=== PATIENT | female | born 1965 | race Caucasian/White ===

== ENCOUNTER 2019-09-05 09:58 | Outpatient (CLI) | payer BC, SELFPAY ==
--- NOTE | ~2019-09-05 | MM_ITS ---
EXAMINATION: MM screening [facility] BI w [facility] HISTORY: Screening mammogram TECHNIQUE: Craniocaudal and mediolateral oblique 3-D tomosynthesis images were obtained and synthetic 2-D images were generated. CAD analysis was submitted and interpreted. COMPARISON: 12/24/2018, 08/12/2017, 08/13/2016 bilateral digital screening mammogram examinations BREAST PARENCHYMAL COMPOSITION: There are scattered areas of fibroglandular density. FINDINGS: There is no evidence of suspicious mass, calcification, or architectural distortion to sugg est malignancy in either breast. There has been no suspicious interval change. IMPRESSION: 1. No mammographic evidence of malignancy. 2. Recommend routine screening mammography in one year. BI-RADS Category 1: Negative Reviewed, dictated and finalized at location A.
== END 2019-09-05 09:59 | disposition home or self-care (01) ==
LOC: ANHIMG 10:02
PROVIDERS: PCP Internal Medicine; Visit Provider Student in an Organized Health Care Education/Training Program
DX: Z12.31 Encounter for screening mammogram for malignant neoplasm of breast (principal)
CPT/HCPCS: 77063; 77067

== ENCOUNTER 2020-09-25 08:15 | Outpatient (CLI) | payer BC, SELFPAY ==
--- NOTE | ~2020-09-25 | MM_ITS ---
EXAMINATION: MM screening [facility] BI w sommer HISTORY: Screening TECHNIQUE: Craniocaudal and mediolateral oblique 3-D tomosynthesis images were obtained and synthetic 2-D images were generated. CAD analysis was submitted and interpreted. COMPARISON: Comparison to multiple prior studies sequentially, with oldest reviewed study dated 12/2014. BREAST PARENCHYMAL COMPOSITION: There are scattered areas of fibroglandular density. FINDINGS: There is no evidence of suspicious mass, calcification, or architectural distortion to sugg est malignancy in either breast. There has been no suspicious interval change. IMPRESSION: 1. No mammographic evidence of malignancy. 2. Recommend routine screening mammography in one year. BI-RADS Category 1: Negative Reviewed, dictated and finalized at location A.
== END 2020-09-25 08:16 | disposition home or self-care (01) ==
LOC: ANHIMG 08:22
PROVIDERS: PCP Internal Medicine; Visit Provider Student in an Organized Health Care Education/Training Program
DX: Z12.31 Encounter for screening mammogram for malignant neoplasm of breast (principal)
CPT/HCPCS: 77063; 77067

== ENCOUNTER 2021-10-28 12:44 | Outpatient (CLI) | payer BC, SELFPAY ==
--- NOTE | ~2021-10-28 | MM_ITS ---
EXAMINATION: MM screening [facility] BI w sommer HISTORY: Screening TECHNIQUE: Craniocaudal and mediolateral oblique 3-D tomosynthesis images were obtained and synthetic 2-D images were generated. CAD analysis was submitted and interpreted. COMPARISON: Comparison to multiple prior studies sequentially, with oldest reviewed study dated 07/23. BREAST PARENCHYMAL COMPOSITION: There are scattered areas of fibroglandular density. FINDINGS: There is no evidence of suspicious mass, calcification, or architectural distortion to sugg est malignancy in either breast. There has been no suspicious interval change. IMPRESSION: 1. No mammographic evidence of malignancy. 2. Recommend routine screening mammography in one year. BI-RADS Category 1: Negative Reviewed, dictated and finalized at location A.
== END 2021-10-28 12:45 | disposition home or self-care (01) ==
LOC: ANHIMG 12:47
PROVIDERS: PCP Internal Medicine; Visit Provider Student in an Organized Health Care Education/Training Program
DX: Z12.31 Encounter for screening mammogram for malignant neoplasm of breast (principal)
CPT/HCPCS: 77063; 77067

== ENCOUNTER 2023-02-02 10:00 | Outpatient (CLI) | payer BC, SELFPAY ==
--- NOTE | ~2023-02-02 | MM_ITS ---
EXAMINATION: MM screening [facility] BI w [facility] HISTORY: Screening mammogram TECHNIQUE: Craniocaudal and mediolateral oblique 3-D tomosynthesis images were obtained and synthetic 2-D images were generated. CAD analysis was submitted and interpreted. COMPARISON: 10/28/2021, 10/12/2020, 09/05/2019 bilateral screening mammogram examinations BREAST PARENCHYMAL COMPOSITION: There are scattered areas of fibroglandular density. FINDINGS: There is stable mild fibroglandular asymmetry. Minimal benign calcification noted on the ri ght. There is no evidence of suspicious mass, calcification, or architectural distortion to suggest m alignancy in either breast. There has been no suspicious interval change. IMPRESSION: 1. No mammographic evidence of malignancy. 2. Recommend routine screening mammography in one year. BI-RADS Category 2: Benign finding(s). Reviewed, dictated and finalized at location A.
== END 2023-02-02 10:01 | disposition home or self-care (01) ==
LOC: ANHIMG 10:03
PROVIDERS: PCP Internal Medicine; Visit Provider Obstetrics & Gynecology
DX: Z12.31 Encounter for screening mammogram for malignant neoplasm of breast (principal)
CPT/HCPCS: 77063; 77067

== ENCOUNTER 2024-07-23 15:04 | Outpatient (CLI) | payer OTHER, SELFPAY ==
--- NOTE | ~2024-07-23 | MM_ITS ---
EXAMINATION: MM screening [facility] BI w sommer HISTORY: Screening mammogram TECHNIQUE: Craniocaudal and mediolateral oblique 3-D tomosynthesis images were obtained and synthetic 2-D images were generated. CAD analysis was submitted and interpreted. COMPARISON: 02/02/2023, 10/28/2021, 09/25/2020, 09/05/2019 BREAST PARENCHYMAL COMPOSITION:Not Dense. There are scattered areas of fibroglandular density. FINDINGS: No suspicious mass, calcification, or architectural distortion are identified in either loree ast to suggest malignancy. There has been no suspicious interval change. IMPRESSION: No mammographic evidence of malignancy. Recommend routine screening mammography in one year. BI-RADS Category 1: Negative Reviewed, dictated and finalized at location .
--- OUTSIDE RECORDS SUMMARY | 2024-07-23 16:40 | XMS_ITS | Continuity of Care Document ---
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 [address] [facility] [address], [address], [place]. tel:[phone] Referring Provider: Marilyn Kelly OD, [address] [facility], [place], [address]. tel:[phone] Family History Family Member Type Diagnosis Age At Onset No Information Payers Payer name Insurance type Covered libertarian ID Authoriza tion(s) No Information Social History Type Description Quantity Date Captured Comments Sex Female Smoking Status No Information Chief Complaint And Reason For Visit No Information Reason For Referral Reason For Referral No Information History Of Present Illness Encounter Date Complaint History Of Prese nt Illness No Information Functional Status Date Functional Assessmen t No Information Instructions Date Instruction Additional Infor mation No Information Assessments Type Assessment Date No Information Patient Care Teams Name Effective Dates (start - stop) Status Members No Information
--- OUTSIDE RECORDS SUMMARY | 2024-07-23 16:40 | XMS_ITS | Data Portability ---
Author Organization [facility] [employer], Main Office Address [address] [place] [address] Assessment No assessment recorded. Plan of Treatment Reminders Order Date Submit Date Provider Last Modified By Organization Details Last Modified Time Details Appointments Establish ed Patient 15 2024 09:00A M Edward Yanes MD Not available Not available Not available Lab lipid panel, serum 2023 024 [facility] (Lab), [address] [place], [address], 03/26/2024 21:13:06 vitamin D, 25-hydrox y, total, serum [address] (Lab), [address] [place], [address], 04/27/2023 09:47:39 CMP, serum or plasma [address] (Lab), [address] [place], [address], 04/27/2023 09:47:38 lipid panel, serum [address] (Lab), [address] [place], [address], 04/27/2023 09:47:39 Referral None recorded. Procedures None recorded. Surgeries None recorded. Imaging MAMMO, screening , bilateral - Please call patient to schedule. [address] (Imaging), [address], [place], [address], 06/25/2024 17:13:42 Medication Orders omeprazol e 40 mg capsule,d elayed release 2023 024 [facility], [address] [place] [address], [address], 12/15/2023 11:06:01 rosuvasta tin 10 mg tablet 2023 024 [facility], [address] [place] [address], [id number], 12/15/2023 11:06:00 omeprazol e 40 mg capsule,d elayed release [email or web address] [facility], [address] [place] [address], [address], 08/10/2023 17:01:56 rosuvasta tin 10 mg tablet 2023 024 [facility] [address], [address] [place] [address], [id number], 08/10/2023 12:56:03 Patient TargetsNo targets recorded. Patient Instructions Encounter Date Encounter Id Patient Instructions Last Modified By Organization Details Last Modified Time 08/10/2023 [id number] [facility] e 08/10/2023 12:55:57 INFLUENZA VACCIN E Recommended today, but patient declined TD/TDAP Recommended today, patient declined Ordered Patient will get at local pharmacy/health department PNEUMONIA VACCINE Ordered Recommend ed today, patient declined Patient will get at local pharmacy/health department Recomm ended at age 66 SHINGLES Ordered Recommend ed today, patient declined Patient will get at local pharmacy/health department MAMMOGRAM: Last Mammogram __ No screening necessary patient is up to date DEXA SCAN CERVICAL SCREENING/PELVIC EXAMINATION Recommended today, but patient declined Ordered No screening necessary patient is up to date COLORECTAL SCREENING: Last Colonoscopy DEPRESSION SCREENING Negative BMI Overweight Approp riate NUTRITION Continue healthy eating & exercise PHYSICAL ACTIVITY Need more exercise/physical activity VISION ALCOHOL USE No alcohol use Occasional/So cial Use TOBACCO USE former smoker current tobacco use LUNG CANCER SCREENING SEXUALLY ACTIVE HEPATITIS C SCREENING Not indicated GLUCOSE SCREENING LIPID SCREENING [id number] Not available 08/10/2023 12:31:16 Reason for Referral None Reported. Results Created Date Observation Date Name Description Value Unit Range Abnormal Flag Note LastModifiedBy Organization Detail LastModifiedTime 06/27/19 24 06/27/2023 COMPR EHENS MALIKA METAB OLIC PANEL sodium 140 mmol/ L 137-14 5 Not Available [facility] (Lab) [address] [place], [address], 06/27/2023 21:15:51 06/27/19 24 06/27/2023 COMPR EHENS MALIKA METAB OLIC PANEL potassium 4.4 mmol/ L 3.5-5. 1 Not Available [facility] (Lab) [address] [place], [address], 06/27/2023 21:15:51 06/27/19 24 06/27/2023 COMPR EHENS MALIKA METAB OLIC PANEL chloride 104 mmol/ L 98-107 Not Available [facility] (Lab) [address] [place], [address], 06/27/2023 21:15:51 06/27/19 24 06/27/2023 COMPR EHENS MALIKA METAB OLIC PANEL carbon dioxide 31 mmol/ L 22-30 high Not Available [facility] (Lab) [address] [place], [address], 06/27/2023 21:15:51 06/27/19 24 06/27/2023 COMPR EHENS MALIKA METAB OLIC PANEL anion gap 9.4 mmol/ L 14-22 low Not Available [facility] (Lab) [address] [place], [address], 06/27/2023 21:15:51 06/27/19 24 06/27/2023 COMPR EHENS MALIKA METAB OLIC PANEL glucose 106 mg/dL 70-99 high Not Available [facility] (Lab) [address] [place], [address], 06/27/2023 21:15:51 06/27/19 24 06/27/2023 COMPR EHENS MALIKA METAB OLIC PANEL BUN 15 mg/dL 8-19 Not Available [facility] (Lab) [address] [place], [address], 06/27/2023 21:15:51 06/27/19 24 06/27/2023 COMPR EHENS MALIKA METAB OLIC PANEL creatinine 0.53 mg/dL 0.66-1 .25 low Not Available [facility] (Lab) [address] [place], [address], 06/27/2023 21:15:51 06/27/19 24 06/27/2023 COMPR EHENS MALIKA METAB OLIC PANEL GFR >60 Refer ence Range : [place] GFR Healt hy Adult : >60 mL/mi n/1.7 3 m2 Chron ic Kidne y Disea se: 15-60 mL/mi n/1.7 3 m2 Kidne y Failu re: <15/m L/min /1.73 m2 www.n iddk. nih.g ov The MDRD study equat ion has not been valid ated in child kelli <18 years of age; pregn ant women ; the elder ly >85 years of age; or in some racia l or ethni c subgr oups, such as Hispa nics. Outsi de the valid ated gregorio eters , estim ated GFR is less accur ate, requi ring clini xavier judgm ent on a case- by-ca se basis . Clini xavier inter preta tion for other races and ages must be made by the clini adrián. The MDRD study equat ion has not been valid ated for the evalu ation of serum creat inine relat ed to nutri majo l statu s or medic ation usage . For perso ns <18 years of age, a pedia tric GFR calcu lator is avail able on the NKF websi te: https ://tristian harp.amish morfin/pr inoess ional s/kdo qi/gf r_cal culat or Not Available [facility] (Lab) [address] [place], [address], 06/27/2023 21:15:51 06/27/19 24 06/27/2023 COMPR EHENS MALIKA METAB OLIC PANEL alkaline phosphatase 101 U/L 38-126 Not Available [facility] (Lab) [address] [place], [address], 06/27/2023 21:15:51 06/27/19 24 06/27/2023 COMPR EHENS MALIKA METAB OLIC PANEL alanine aminotransfe rase 17 U/L 0-35 Not Available [facility] (Lab) [address] [place], [address], 06/27/2023 21:15:51 06/27/19 24 06/27/2023 COMPR EHENS MALIKA METAB OLIC PANEL aspartate aminotransfe rase 26 U/L 15-37 Not Available [facility] (Lab) [address] [place], [address], 06/27/2023 21:15:51 06/27/19 24 06/27/2023 COMPR EHENS MALIKA METAB OLIC PANEL bilirubin, total 1.00 mg/dL 0.20-1 .30 Not Available [facility] (Lab) [address] [place], [address], 06/27/2023 21:15:51 06/27/19 24 06/27/2023 COMPR EHENS MALIKA METAB OLIC PANEL calcium 9.7 mg/dL 8.4-10 .2 Not Available [facility] (Lab) [address] [place], [address], 06/27/2023 21:15:51 06/27/19 24 06/27/2023 COMPR EHENS MALIKA METAB OLIC PANEL total protein 7.1 g/dL 6.3-8. 2 Not Available [facility] (Lab) [address] [place], [address], 06/27/2023 21:15:51 06/27/19 24 06/27/2023 COMPR EHENS MALIKA METAB OLIC PANEL albumin 4.5 g/dL 3.4-5. 0 Not Available [facility] (Lab) [address] [place], [address], 06/27/2023 21:15:51 06/27/19 24 06/27/2023 COMPR EHENS MALIKA METAB OLIC PANEL globulin 2.6 g/dL 2.6-4. 2 Not Available [facility] (Lab) [address] [place], [address], 06/27/2023 21:15:51 06/27/19 24 06/27/2023 COMPR EHENS MALIKA METAB OLIC PANEL A/G ratio 1.7 ratio 1.0-2. 0 Not Available [facility] (Lab) [address] [place], [address], 06/27/2023 21:15:51 06/27/1906/27/2023 LIPID PANEL cholesterol 142 mg/dL 140-19 9 NIH HIRAM NSUS RECOM MENDA TION FOR LISSY STERO L: ADULT CHILD LOW RISK: <200 <170 BORDE RLINE : <200- 239 ----- HIGH RISK: >240 >200 Not Available [facility] (Lab) [address] [place], [address], 06/27/2023 21:15:53 06/27/1906/27/2023 LIPID PANEL triglyceride s 117 mg/dL 0-150 NIH HIRAM NSUS REPOR T RECOM MENDA TION FOR TRIGL YCERI KEYLA: ADULT CHILD LOW RISK: <150 ----- BODER LINE: 150-1 99 ----- HIGH RISK: >200 ----- Not Available [facility] (Lab) [address] [place], [address], 06/27/2023 21:15:53 06/27/19 24 06/27/2023 LIPID PANEL HDL cholesterol 60 mg/dL 40- Not Available [facility] (Lab) [address] [place], [address], 06/27/2023 21:15:53 06/27/19 24 06/27/2023 LIPID PANEL LDL cholesterol, calculated 59 mg/dL 0-130 NIH HIRAM NSUS REPOR T RECOM MENDA TIONS FOR LDL: ADULT CHILD LOW RISK <130 <110 (OPTI MAL LDL) <100 ----- BORDE RLINE : 130-1 59 ----- HIGH RISK: >160 >130 A TRIGL YCERI DE RESUL T >400 INVAL IDATE S THE CALCU LATIO N FOR LDL FRACT IONAT ION - THE LDL RESUL T WILL NOT BE REPOR ANGELA. Not Available [facility] (Lab) [address] [place], [address], 06/27/2023 21:15:53 06/27/19 24 06/27/2023 VITAM IN D 25-HY DROXY vd25oh 37.5 NG/mL 30-100 Vitam in D Statu s: Defic ient: <20 ng/mL Insuf ficie nt: 20-29 ng/mL Suffi cient : 30-10 0 ng/mL Not Available [facility] (Lab) [address] [place], [address], 06/27/2023 21:39:35 03/26/20 24 03/26/2024 LIPID PANEL cholesterol 155 mg/dL 140-19 9 NIH HIRAM NSUS RECOM MENDA TION FOR LISSY STERO L: ADULT CHILD LOW RISK: <200 <170 BORDE RLINE : <200- 239 ----- HIGH RISK: >240 >200 Not Available [facility] (Lab) [address] [place], [address], 03/26/2024 21:13:06 03/26/20 24 03/26/2024 LIPID PANEL triglyceride s 80 mg/dL 0-150 NIH HIRAM NSUS REPOR T RECOM MENDA TION FOR TRIGL YCERI KEYLA: ADULT CHILD LOW RISK: <150 ----- BODER LINE: 150-1 99 ----- HIGH RISK: >200 ----- Not Available [facility] (Lab) [address] [place], [address], 03/26/2024 21:13:06 03/26/20 24 03/26/2024 LIPID PANEL HDL cholesterol 55 mg/dL 40- Not Available [facility] (Lab) [address] [place], [address], 03/26/2024 21:13:06 03/26/20 24 03/26/2024 LIPID PANEL LDL cholesterol, calculated 84 mg/dL 0-130 NIH HIRAM NSUS REPOR T RECOM MENDA TIONS FOR LDL: ADULT CHILD LOW RISK <130 <110 (OPTI MAL LDL) <100 ----- YOLANDA RLINE : 130-1 59 ----- HIGH RISK: >160 >130 A TRIGL YCERI DE RESUL T >400 INVAL IDATE S THE CALCU LATIO N FOR LDL FRACT IONAT ION - THE LDL RESUL T WILL NOT BE REPOR ANGELA. Not Available [facility] (Lab) [address] [place], [address], 03/26/2024 21:13:06 Result Notes None recorded. Problems Name Problem SNOMED Code Status Onset Date Resolution Date Notes Provider Name and Address Organization Details Recorded Time Menopausal syndrome 242483681 Completed Not Available [facility] 3 14:14:36 Menopausal flushing 234031039 Active 2020 Not Available [facility] 3 22:17:14 Gastroesop hageal reflux disease 348482189 Active Not Available [facility] 3 22:17:14 Basal cell carcinoma of skin 198939593 Active Not Available [facility] 3 22:17:14 Adult health examinatio n Active 2021 Not Available [facility] 3 22:17:14 Eruption 452419897 Completed Not Available [facility] 3 14:14:36 Screening for malignant neoplasm of colon Completed 202112/10/2021 Not Available [facility] 3 14:14:36 Vitamin D deficiency 64342200 Active Not Available [facility] 3 22:17:14 Hypothyroi dism 30816172 Active Not Available [facility] 3 22:17:14 Anxiety 82460616 Active 2020 Not Available [facility] 3 22:17:14 Hyperlipid emia 71257615 Active 2017 Not Available [facility] 3 22:17:14 Joint pain 85893809 Completed Not Available [facility] 3 14:14:37 Essential hypertensi on 38132417 Active Not Available [facility] 3 22:17:14 Allergic rhinitis 98781409 Active Not Available [facility] 3 22:17:14 Problem Notes None recorded. Medical Equipment None Reported. Allergies No known drug allergies Medications Name Sig Start Date Stop Date Status Note LastModified by Organization Details LastModified Time venlafaxine ER 37.5 mg capsule,exte nded release 24 hr 11/03 completed Not Available Not Available Not Available venlafaxine ER 75 mg capsule,exte nded release 24 hr 03/08 completed Not Available Not Available Not Available atorvastatin 20 mg tablet TAKE 1 TABLET BY MOUTH ONCE DAILY active Not Available Not Available No t Available atorvastatin 10 mg tablet Take 1 tablet every day by oral route. 07/01 completed Not Available Not Available Not Available lisinopril 20 mg tablet Take 1 tablet by mouth once daily. 04/06 completed Not Available Not Available Not Available clobetasol 0.05 % topical cream active Not Available Not Available Not Available omeprazole 40 mg capsule,jose manuel yed release Take 1 capsule by mouth once daily 2024 active AMARJIT NOV 5 ok to rf Not Available Not Available Not Available ketorolac 10 mg tablet active Not Available Not Available No t Available oxycodone-ac etaminophen 5 mg-325 mg tablet active Not Available Not Available Not Available lisinopril 10 mg tablet TAKE 1 TABLET BY MOUTH ONCE DAILY active Not Available Not Available No t Available Vitamin D2 1,250 mcg (50,000 unit) capsule Take 1 capsule every week by oral route for 90 days. 11/03 completed Not Available Not Available Not Available rosuvastatin 10 mg tablet Take 1 tablet every day by oral route. 2023 active Not Available Not Available Not Avai lable rosuvastatin 20 mg tablet Take 1 tablet by mouth once daily 08/09 completed Not Available Not Available Not Available duloxetine 60 mg capsule,jose manuel yed release TAKE 1 CAPSULE BY MOUTH ONCE DAILY AT BEDTIME 06/01 completed Not Available Not Available Not Available Vitamin D 1000u daily 2019 active Not Available Not Available Not Avai lable Vagifem 10 mcg vaginal tablet active Not Available Not Available Not Available Lo Loestrin Fe 1 mg-10 mcg (24)/10 mcg (2) tablet Take 1 tablet every day by oral route. active Not Available Not Available No t Available Vitals Date Recorded Body height Body mass index (BMI) Body weight Body temperature Heart rate Oxygen saturation Oxygen saturation in Arterial blood by Pulse oximetry Systolic blood pressure Diastolic blood pressure Provider Name and Address Organization Details Last Updated DateTime 3 152.4 cm 26 kg/m2 91966.7 9 g 97.7 [degF] 85 /min 96 % 96 % 136 mm[Hg] 80 mm[Hg] HEMANT Palm [facility] [employer] [facility] 3 10:51:05 Date Recorded Body height Body temperature Body mass index (BMI) Body weight Heart rate Oxygen saturation Oxygen saturation in Arterial blood by Pulse oximetry Systolic blood pressure Diastolic blood pressure Provider Name and Address Organization Details Last Updated DateTime 3 152.4 cm 98.4 [degF] 26.2 kg/m2 08073.3 8 g 83 /min 98 % 98 % 120 mm[Hg] 70 mm[Hg] Don Samuel CMA [facility] [employer] [facility] 3 12:03:51 Date Recorded Body height Body mass index (BMI) Body weight Body temperature Heart rate Oxygen saturation Oxygen saturation in Arterial blood by Pulse oximetry Systolic blood pressure Diastolic blood pressure Provider Name and Address Organization Details Last Updated DateTime 4 152.4 cm 26.2 kg/m2 51980.3 8 g 98.6 [degF] 84 /min 98 % 98 % 120 mm[Hg] 80 mm[Hg] Rochelle chatman CMA [facility] [employer] [facility] 4 12:17:18 Date Recorded Body height Body mass index (BMI) Body weight Oxygen saturation Oxygen saturation in Arterial blood by Pulse oximetry Heart rate Body temperature Systolic blood pressure Diastolic blood pressure Provider Name and Address Organization Details Last Updated DateTime 4 152.4 cm 25.6 kg/m2 84585.6 g 99 % 99 % 80 /min 98.4 [degF] 118 mm[Hg] 74 mm[Hg] Lizzy Francisco [facility] [employer] [facility] 4 10:37:50 Date Recorded Body height Body mass index (BMI) Body weight Body temperature Heart rate Oxygen saturation Oxygen saturation in Arterial blood by Pulse oximetry Systolic blood pressure Diastolic blood pressure Provider Name and Address Organization Details Last Updated DateTime 4 152.4 cm 26.2 kg/m2 40811.3 8 g 97.2 [degF] 86 /min 95 % 95 % 132 mm[Hg] 88 mm[Hg] Moni schmitt Lucie [facility] [employer] [facility] 4 10:41:39 Social History Question Answer Notes LastModified by Organizat ion Details LastModified Time What Is Your Occupation? N/a [id number] Information not available 06/23/2022 Sex: Unknown Functional Status None recorded. Mental Status None recorded. Family History Nothing Reported. Medical History No medical history recorded. Gynecological HistoryNo gynecological history recorded. Obstetrics History GPAL:G 0 P 0 0 0 0 Immunizations Vaccine Type Date Status Note Provider Nam e and Address Organization Details Recorded Time DTaP 11/04/2008 completed Not Available [facility] 03/08/2023 22:17:14 Past Encounters Encounter ID Performer Location Encounter Start Date Encounter Closed Date Diagnosis/Indication Diagnosis SNOMED-CT Code Diagnosis ICD10 Code Diagnosis Note [id number] [facility] [place] [facility] [address] [place] [address] 12/25/2020 00:00:00 12/25/2020 16:55:48 [id number] [facility] [place] [facility] [address] [place] [address] 06/01/2021 00:00:00 06/01/2021 11:59:43 [id number] [facility] [facility] [address] [place] [address] 12/14/2021 00:00:00 12/14/2021 14:51:19 [id number] Edward Yanes MD [facility] [place] [address] [place] [address] 08/03/2022 10:14:44 08/03/2022 11:11:27 Essential hypertension 34346446 I10 under control Gastroesop hageal reflux disease 144781576 K21.9 needs meds daily Hyperlipidemia 43372138 E78.5 labs good Basal cell carcinoma of skin 705417551 C44.91 no recurrence , need to see derm every year Allergic rhinitis 515837 04 J30.9 otc Menopausal flushing 1983 13212 N95.1 otc Anxiety 00541529 F41.9 no meds needed Vitamin D deficiency 347 82547 E55.9 on otc Adult heal th examination 037594600 Z00.00 Colonoscop y- does not want, had neg cologuard 01/13Mammog marce- 11/13Flu- does not wantCovid- does not want Postmenopausal state 764 04369 Z78.0 [id number] Edward Yanes MD [facility] [place] [facility] [address] [place] [address] 12/03/2022 10:38:46 12/03/2022 11:36:52 Essential hypertension 38587662 I10 under control Gastroesop hageal reflux disease 341916700 K21.9 needs meds daily Hyperlipidemia 28272553 E78.5 labs next time Basal cell carcinoma of skin 997290131 C44.91 no recurrence , Allergic rhinitis 771986 04 J30.9 otc Menopausal flushing 1983 17244 N95.1 otc Anxiety 45441013 F41.9 no meds needed Vitamin D deficiency 347 56894 E55.9 on otc Adult heal th examination 483180139 Z00.00 Colonoscop y- does not want, had neg cologuard 01/13Mammog marce- 11/13, getting it in 02/14Dexa- Flu- does not wantCovid- does not want [id number] Edward Yanes MD [facility] Internal Med [facility] [address] [place] [address] 04/06/2023 11:39:29 04/06/2023 12:45:00 Adult health examination 347117150 Z00.00 Z13.220 Colonoscop y- does not want, had neg cologuard 01/13Mammog marce- 02/14 at [facility] sumanth- does not wantCovid- does not want Essential hypertension 12017213 I10 under control Gastroesop hageal reflux disease 569107608 K21.9 needs meds daily Hyperlipidemia 17029216 E78.5 labs next time Basal cell carcinoma of skin 049441045 C44.91 no recurrence , Allergic rhinitis 882582 04 J30.9 otc Menopausal flushing 1983 83763 N95.1 otc Anxiety 11712679 F41.9 no meds needed Vitamin D deficiency 347 40979 E55.9 on otc [id number] Edward Yanes MD [facility] Internal Med [address] [place] [address] 08/10/2023 11:32:19 08/10/2023 13:02:10 Gastroesophageal reflux disease 634418425 K21.9 needs meds daily Hyperlipidemia 42358076 E78.5 cut down the dose Adult heal th examination 511854294 Z00.00 Z13.220 Colonoscop y- does not want, had neg cologuard 01/13Mammog marce- 02/14 at [facility]- wants to wait till age 61 due to insuranceF sumanth- does not wantCovid- does not want Essential hypertension 07384467 I10 under control Basal cell carcinoma of skin 429413552 C44.91 no recurrence , Allergic rhinitis 483842 04 J30.9 otc Menopausal flushing 1983 66567 N95.1 otc helps Anxiety 32181597 F41.9 no meds needed Vitamin D deficiency 347 38110 E55.9 on otc Depression screening 171 256396 Z13.31 [id number] Edward Yanes MD [facility] Internal Med [address] [place] [address] 12/15/2023 10:28:58 12/15/2023 11:07:42 Gastroesophageal reflux disease 854293574 K21.9 needs meds daily Hyperlipidemia 70934309 E78.5 cut down the dose Adult heal th examination 152134774 Z00.00 Z13.220 Colonoscop y- does not want, had neg cologuard 01/13 , educated about colonoscop yMammogram - 02/14 at [facility]- wants to wait till age 61 due to insuranceF sumanth- does not wantCovid- does not want Essential hypertension 96773890 I10 under control, no meds needed Basal cell carcinoma of skin 024194911 C44.91 no recurrence , Allergic rhinitis 041283 04 J30.9 otc Menopausal flushing 1983 19512 N95.1 otc helps Anxiety 65030787 F41.9 no meds needed Vitamin D deficiency 347 61598 E55.9 on otc [id number] Edward Yanes MD [facility] Internal Med [address] [place] [address] 03/26/2024 10:32:45 03/26/2024 11:02:40 Gastroesophageal reflux disease 920710078 K21.9 needs meds daily Hyperlipidemia 70886511 E78.5 keep watching diet Adult heal th examination 421223717 Z00.00 Z13.220 Colonoscop y- does not want, had neg cologuard 01/13Mammog marce- 02/14 at [facility]- wants to wait till age 61 due to insuranceF sumanth- does not wantCovid- does not want Essential hypertension 72700296 I10 watch, no meds needed Basal cell carcinoma of skin 547120079 C44.91 no recurrence , Allergic rhinitis 606404 04 J30.9 otc Menopausal flushing 1983 91911 N95.1 otc helps Anxiety 57701612 F41.9 no meds needed Vitamin D deficiency 347 70338 E55.9 on otc Screening mammography 24 487624 Z12.31 Health Concerns Section Related Observation LastModified by Organization Detai ls LastModified Time None Recorded Concern Status LastModified by Organization Details LastModified Time None Recorded Advance Directives Directive None Recorded Payers Encounter Date Sequence Insurance Name Policy Number Policy Babin Covered Member ID Babin Member ID Guarantor Name 12/03/2022 1 [place] [id number] Bryn Rod Xena [id number] Lilian L Xena 04/06/2023 1 [place] [id number] Bryn Rod Xena [id number] Lilian L Xena 08/10/2023 1 [place] [id number] Bryn Rod Xena [id number] Lilian L Xena 12/15/2023 1 [place] [id number] Bryn Rod Xena [id number] Lilian L Xena 03/26/2024 1 [place] [id number] Bryn Rod Xena [id number] Lilian L Xena Notes Date Note Type Note Provider Name and Address Organization Details Recorded Time 12/03/2022 text/html Doing fine, comp liant to medications, no side affects, here for follow up.HTN, taking meds, under control,Meds- Lisinopril 10 dailyGERD is better with meds, needs daily,Meds- Omeprazole 40 mg dailyHyperlipidemia- better with meds, labs 03/16meds- rosuvastatin 20 mg qdstill gets aches and pains in the joints- ALEVE helpsHOT FLASHES- partial HYSTERECTOMY, mild symtoms, otc helpswas on Duloxetine 60 mg daily but not any more, takes otcHas skin nodules, s/p biopsy by derm, SEEN rheumatology, no arthritis, nodules have improvedAllergic rhinitis- otc helpsvit d def- on otcBasal cell cancer- s/p removal from the left side of the face close to the eyeAnxiety- has tried CBD oil , not using it any more Edward Yanes MD [address] [place] [address] Ave, [facility] [address], [place], [address], [place] [facility] [employer] 12/03/2022 11:18:42 04/06/2023 text/html Doing fine, compliant to medications, no side affects, here for follow up.HTN- not taking meds for 6 months, under control without medsMeds- was on Lisinopril 10 dailyGERD is better with meds, needs daily,Meds- Omeprazole 40 mg dailyHyperlipidemia- better with meds, labs duemeds- rosuvastatin 20 mg qdstill gets aches and pains in the joints- ALEVE helpsHOT FLASHES- partial HYSTERECTOMY, mild symptoms, otc helpswas on Duloxetine 60 mg daily but not any more, takes otcHas skin nodules, s/p biopsy by derm, SEEN rheumatology, no arthritis, nodules have improvedAllergic rhinitis- otc helpsvit d def- on otcBasal cell cancer- s/p removal from the left side of the face close to the eyeAnxiety- has tried CBD oil , not using it any more Edward Yanes MD [address], [place], [address], [place] [facility] [employer] 04/06/2023 12:49:40 08/10/2023 text/html Doing fine, compliant to medications, no side affects, here for follow up.HTN- not taking meds for 6 months, under control without medsMeds- was on Lisinopril 10 dailyGERD is better with meds, needs daily,Meds- Omeprazole 40 mg dailyHyperlipidemia- better with meds, labs done 07/16meds- rosuvastatin 20 mg qdstill gets aches and pains in the joints- ALEVE helpsHOT FLASHES- partial HYSTERECTOMY, mild symptoms, otc helpswas on Duloxetine 60 mg daily but not any more, takes otc and it helpsHas skin nodules, s/p biopsy by derm, SEEN rheumatology, no arthritis, nodules have improvedAllergic rhinitis- otc helpsvit d def- on otcBasal cell cancer- s/p removal from the left side of the face close to the eye, no recurrenceAnxiety- has tried CBD oil , not using it any more Edward Yanes MD [address] [facility], [facility] [address], [place], [address], [facility] [employer] 08/10/2023 17:01:37 12/15/2023 text/html Doing fine, comp liant to medications, no side affects, here for follow up.HTN- Under control without meds, was on Lisinopril 10 dailyGERD is better with meds, needs daily,Meds- Omeprazole 40 mg dailyHyperlipidemia- better with meds, labs done 07/16 were very good and dose was lowered to 10 mgMeds- Rosuvastatin 10 mg qdstill gets aches and pains in the joints- ALEVE helpsHOT FLASHES- partial HYSTERECTOMY, mild symptoms, otc helpswas on Duloxetine 60 mg daily but not any more, takes otc and it helpsHas skin nodules, s/p biopsy by derm, SEEN rheumatology, no arthritis, nodules have improvedAllergic rhinitis- otc helpsvit d def- on otcBasal cell cancer- s/p removal from the left side of the face close to the eye, no recurrenceAnxiety- has tried CBD oil , not using it any more Edward Yanes MD [address] [facility], [facility] [address], [place], [address], [place] [facility] [employer] [facility] [employer] 12/15/2023 11:06:08 03/26/2024 text/html Doing fine, comp liant to medications, no side affects, here for follow up.pt is fasting (BCBS)HTN- Under control without meds, was on Lisinopril 10 dailyGERD is better with meds, needs meds dailyMeds- Omeprazole 40 mg dailyHyperlipidemia- better with meds, labs done 07/16 were very good and dose was lowered to 10 mg , needs labsMeds- Rosuvastatin 10 mg qdstill gets aches and pains in the joints- ALEVE helpsHOT FLASHES- partial HYSTERECTOMY, mild symptoms, otc helpswas on Duloxetine 60 mg daily but not any more, takes otc and it helpsHas skin nodules, s/p biopsy by derm, SEEN rheumatology, no arthritis, nodules have improved, no recurrence.Allergic rhinitis- otc helpsvit d def- on otcBasal cell cancer- s/p removal from the left side of the face close to the eye, no recurrenceAnxiety- has tried CBD oil , not using it any more Edward Yanes MD [address] [facility], [address] [address], [place], [address], [place] [facility] 03/26/2024 11:00:11 OBGyn Episode No OBEpisode recorded.
== END 2024-07-23 15:05 | disposition home or self-care (01) ==
LOC: ANHIMG 15:08
PROVIDERS: PCP Internal Medicine; Visit Provider Internal Medicine
DX: Z12.31 Encounter for screening mammogram for malignant neoplasm of breast (principal)
CPT/HCPCS: 77063; 77067